=== PATIENT | male | born 1990 | race Two or more races ===

== ENCOUNTER 2020-06-20 06:04 | Day surgery (SDC) | payer OTHER ==
[~2020-06-20 06:04] MED LIST: CLONAZEPAM2 M1 PO; LEXAPRO5 MG PO
[2020-06-20] MEDS ORDERED: NEURONTIN600 M1 PO (09:10)
[2020-06-20] MEDS ORDERED: COLACE100 MG PO (09:10)
[2020-06-20] MEDS ORDERED: ULTRACET PO (09:13)
== END 2020-06-20 15:15 | disposition home or self-care (01) ==
LOC: CIR.AMB 06:04
PROVIDERS: ATTEND Surgery
DX: K40.90 Unilateral inguinal hernia, without obstruction or gangrene, not specified as recurrent (principal); Z20.828 Contact with and (suspected) exposure to other viral communicable diseases

== ENCOUNTER 2025-02-09 13:21 | Emergency (ER) | payer OTHER ==
[~2025-02-09] VITALS: Ht 177.8 cm; Wt 154.2 kg
[~2025-02-09 13:21] MED LIST changes: +COLACE100 MG PO; +NEURONTIN600 M1 PO; +ULTRACET PO
[2025-02-09 18:05] LABS: BASO % 0.2 % (0.1-1.2); EOS # 0.12 (0.04-0.54); EOS % 0.9 % (0.7-7.0); LYMPH # 2.99 (1.18-3.74); LYMPH % 22.8 % (19.3-53.1); MEAN PLATELET VOLUME 10.70 fl (9.4-12.4); MONO # 0.65 (0.24-0.82); MONO % 5.0 % (4.7-12.5); NEUT # 9.30 (1.56-6.13); NEUT % 70.9 % (34.0-71.1); RED CELL DISTRIBUTION WIDTH 12.8 % (11.6-14.4)
[2025-02-09 19:52] LABS: COVID-19 AG NEGATIVE (NEGATIVE)
[2025-02-09] MEDS ORDERED: AZITHROMYCIN500 MG PO (19:58)
[2025-02-09] MEDS ORDERED: PEPCID AC20 MG PO (19:58)
== END 2025-02-09 20:05 | disposition home or self-care (01) ==
LOC: ER 13:21
PROVIDERS: General Practice
DX: J32.9 Chronic sinusitis, unspecified (principal); R51.9 Headache, unspecified; Z20.822 Contact with and (suspected) exposure to COVID-19; Z88.5 Allergy status to narcotic agent; Z91.013 Allergy to seafood